=== PATIENT | male | born 1950 | race Caucasian/White ===

== ENCOUNTER → 2017-12-04 08:51 | Outpatient (CLI) | payer MEDICARE, BC, SELFPAY ==
[2017-12-04 10:16] LABS: Alanine Aminotransferase 44 IU/L (21-72); Albumin 4.1 g/dL (3.5-5.0); Albumin Globulin Ratio 1.2 (1.0-2.8); Alkaline Phosphatase 110 U/L (38-126); Aspartate Aminotransferase 36 IU/L (17-59); Bilirubin Total 0.8 mg/dL (0.2-1.3); Blood Urea Nitrogen 16 mg/dL (9-20); Calcium 9.2 mg/dL (8.4-10.2); Carbon Dioxide 30 mmol/L (22-32); Chloride 103 mmol/L (98-107); Cholesterol 167 mg/dL (140-199); Estimated Glomerular Filt Rate > 60.0 mL/min (>60); Globulin 3.5 g/dL (1.7-4.1); Glucose 92 mg/dL (80-110); HDL Cholesterol 52 mg/dL (40-60); HEMOLYSIS < 15 (0-50); LDL Cholesterol Calculated 91 mg/dL (<100); Magnesium 2.1 mg/dL (1.6-2.3); Sodium 141 mmol/L (137-145); Total Protein 7.6 g/dL (6.3-8.2); Triglycerides 119 mg/dL (35-150)
[2017-12-04 10:46] LABS: Thyroid Stimulating Hormone 1.71 uIU/mL (0.47-4.68)
== END ==
PROVIDERS: Family Provider Internal Medicine; PCP Internal Medicine; Visit Provider Internal Medicine Cardiovascular Disease
DX: E78.5 Hyperlipidemia, unspecified (principal); R00.2 Palpitations; R94.31 Abnormal electrocardiogram [ECG] [EKG]
CPT/HCPCS: 36415; 80053; 80061; 83735; 84443

== ENCOUNTER → 2017-12-23 12:04 | Outpatient (CLI) | payer MEDICARE, BC, SELFPAY ==
--- NOTE | 2017-12-25 08:00 | DI.NM.S_ITS ---
DATE OF SERVICE: 12/23/2017 PROCEDURE: Exercise perfusion study. INDICATIONS: Palpitations with underlying right bundle branch block and left anterior fascicular block; however, cannot rule out old inferior wall PR; abnormal EKG; mitral valve prolapse; high cholesterol; and family history of myocardial infarction. RADIOPHARMACEUTICAL: 28.1 mCi of technetium-99m Myoview IV was injected at stress, and 26.8 mCi of technetium-99m Myoview IV was injected at rest. CARDIAC STRESS: Patient underwent exercise perfusion study under the supervision of an attending staff. The patient walked on Gerry protocol for 8 minutes 05 seconds and achieved a maximum heart rate of 208, which was 136% of target heart rate. Baseline rhythm was sinus with right bundle branch block and possible left anterior fascicular block. During stress, there were no obvious ischemic changes. At peak exercise, the patient developed irregular tachycardia like SVT with maximum heart rate of 208. The patient also had intermittent PVCs and occasional ventricular couplets without any ventricular tachycardia. No chest pain was reported. RAW DATA: There was increased subdiaphragmatic activity. GATED STUDY: Resting LV ejection fraction 69% and stress LV ejection fraction 79%. No transient ischemic dilatation. TID ratio 0.72, which is within normal limits. Resting end-diastolic volume 93 mL. Lung/heart ratio 0.30, which is within normal limits. MYOCARDIAL PERFUSION SCAN: Stress supine, resting supine, and stress prone images were compared to each other. Stress and resting supine images revealed small-sized mildly decreased perfusion of inferior wall and inferoapex as well as basal inferolateral wall which significantly improved during prone images, suggestive of diaphragmatic tissue attenuation artifact. I don't see any convincing ischemia or infarction in prone images. CONCLUSION: I would call this study likely a normal myocardial perfusion study with evidence of diaphragmatic tissue attenuation artifact which significantly improved during prone images. Overall, LV function is preserved. As far as perfusion scan is concerned, this is a low risk myocardial perfusion scan. The patient had an episode of regular tachycardia at peak exercise, likely SVT. Shine Heard - HERMELINDO/césar/ doc#: [id number]/job#: [id number] dd: 12/24/2017 12:39:00 dt: 12/24/2017 17:12:00 DICTATING MD/COPIES TO: Tyrone Castellanos MD COPIES MNE: SCOTTY
== END ==
PROVIDERS: PCP Internal Medicine; Visit Provider Internal Medicine Cardiovascular Disease
DX: R00.2 Palpitations (principal); E78.00 Pure hypercholesterolemia, unspecified; Z82.49 Family history of ischemic heart disease and other diseases of the circulatory system
CPT/HCPCS: 78452; 93016; 93017; 93018; A9502

== ENCOUNTER → 2017-12-24 09:36 | Outpatient (CLI) | payer MEDICARE, BC, SELFPAY ==
--- NOTE | 2017-12-24 | DI.ECHO.S_ITS ---
[facility] +---------+ : : [address] : [address] [address] : : : : [id number] : : : : Phone: [phone]+ Echocardiogram Report + + :Name: KADIE MERCEDES Study Date: 12/24/2017 Height: 70 in : :[facility] Weight: 196 lb : : Gender: Male BSA: 2.1 m2 : :: 1950 Age: 67 yrs BP: 138/78 mmHg: :Reason For Study: Palpitations : :Ordering Physician: Tyrone : :[place] Performed By: Miranda Pantoja : :Referring: Dr. Rufino Contreras : + + Interpretation Summary The left ventricle is normal in size. The ejection fraction is estimated to be 55-60%. The right ventricle is normal size. Right ventricular systolic function is at the lower limits of normal. There is mild mitral regurgitation. Compared to the prior echo study, there has been no change in the severity of mitral regurgitation. There is mild tricuspid regurgitation. The right ventricular systolic pressure is estimated at 24 mmHg assuming a right atrial pressure of 3 mm Hg. Procedure: A two-dimensional transthoracic echocardiogram with color flow and Doppler was performed. The study quality was technically adequate. Comparison is made with the echocardiogram of 08-21-13. The patient was in normal sinus rhythm during the exam. Left Ventricle: The left ventricle is normal in size. There is normal left ventricular wall thickness. There is no thrombus. The ejection fraction is estimated to be 55-60%. There has been no significant change since the previous study. There are no focal wall motion abnormalities. Assessment of diastolic parameters indicates a relaxation abnormality of the left ventricle, consistent with normal filling pressures. Right Ventricle: The right ventricle is normal size. Right ventricular systolic function is at the lower limits of normal. Atria: Borderline left atrial enlargement. Right atrial size is normal. The interatrial septum is intact with no evidence for an atrial septal defect. Mitral Valve: The mitral valve leaflets appear mildly thickened, but open well. There is a flat closure plane of the the mitral valve leaflets. There is mild mitral regurgitation. Compared to the prior echo study, there has been no change in the severity of mitral regurgitation. Aortic Valve: The aortic valve opens well. The aortic valve is trileaflet. There is no aortic valve stenosis. No aortic regurgitation is present. Tricuspid Valve: The tricuspid valve leaflets are thin and pliable. There is mild tricuspid regurgitation. The right ventricular systolic pressure is estimated at 24 mmHg assuming a right atrial pressure of 3 mm Hg. Pulmonic Valve: The pulmonic valve is not well seen, but is grossly normal. There is trace pulmonic regurgitation. Great Vessels: The aortic root is normal size. The ascending aorta is mildly enlarged. The IVC is of normal diameter and collapses greater than 50% with a sniff. This suggests a low right atrial pressure of 3 mm Hg. Pericardium/ Pleura There is no pericardial effusion. There is no pleural effusion. MMode/2D Measurements & Calculations LVIDd: 4.7 cm Ao root diam: 3.5 cm LVIDs: 3.0 cm Aortic Jxn: 2.5 cm FS: 36.5 % asc Aorta Diam: 3.6 cm EPSS: 1.2 cm Ao Arch Diam (Prox Trans): 3.0 cm IVSd: 0.84 cm LVPWd: 0.61 cm LV sullivan. diameter/BSA (cm/m^2): 2.3 LV sys. diameter/BSA (cm/m^2): 1.4 LA dimension: 3.1 cm RA long axis: 5.3 cm LA A2 area: 23.8 cm2 RA area: 18.4 cm2 LA A4 area: 20.1 cm2 RA vol: 54.0 ml LA length (vol): 5.3 cm RA : 26.1 ml/m2 LA vol: 76.7 ml IVC diam: 1.1 cm LA vol index: 37.1 ml/m2 RVDd major: 5.1 cm RVD1 (basal): 4.2 cm RVD2 (mid): 3.4 cm Doppler Measurements & Calculations Ao V2 max: 114.8 cm/sec MV E max hector: 76.7 cm/sec Ao V2 mean: 79.3 cm/sec MV A max hector: 80.9 cm/sec Ao max P.3 mmHg MV E/A: 0.95 Ao mean P.8 mmHg Med Peak E' Hector: 5.9 cm/sec Ao V2 VTI: 29.4 cm E/E' med: 13.0 Lat Peak E' Hector: 4.9 cm/sec E/E' lat: 15.5 E/e' average: 14.3 MV dec time: 0.20 sec MV P1/2t: 60.0 msec TR max hector: 229.0 cm/sec MV P1/2t max hector: 77.3 cm/sec TR max P.0 mmHg MVA(P1/2t): 3.7 cm2 PA V2 max: 59.8 cm/sec PA V2 mean: 38.6 cm/sec PA mean P.70 mmHg PA Accel Time: 0.15 sec Reading Physician:SHELLY
== END ==
PROVIDERS: PCP Internal Medicine; Visit Provider Internal Medicine Cardiovascular Disease
DX: I08.1 Rheumatic disorders of both mitral and tricuspid valves (principal); R00.2 Palpitations
CPT/HCPCS: 93306

== ENCOUNTER → 2019-06-17 12:31 | Outpatient (CLI) | payer MEDICARE, SELFPAY ==
[2019-06-17 13:57] LABS: Blood Urea Nitrogen 16 mg/dL (9-20); Calcium 9.4 mg/dL (8.4-10.2); Carbon Dioxide 31 mmol/L (22-32); Chloride 101 mmol/L (98-107); Estimated Glomerular Filt Rate > 60.0 mL/min (>60); Glucose 83 mg/dL (80-110); HEMOLYSIS < 15 (0-50); Magnesium 2.1 mg/dL (1.6-2.3); Potassium 4.2 mmol/L (3.4-5.1); Sodium 138 mmol/L (137-145)
== END ==
PROVIDERS: PCP Internal Medicine; Visit Provider Physician Assistant
DX: I47.1 Supraventricular tachycardia (principal)
CPT/HCPCS: 36415; 80048; 83735; 84443

== ENCOUNTER → 2019-08-20 12:45 | Outpatient (ROUT) | payer MEDICARE, SELFPAY ==
[2019-08-20 13:54] LABS: Prostate Specific Antigen 0.992 ng/mL (0.10-4.00)
[2019-08-20 17:04] LABS: Hep C Virus Ab w/Reflex Quant NEGATIVE s/c (NEGATIVE)
[2019-08-21 00:07] LABS: Hepatitis B Surf AB Quant <3.1 mIU/mL (Immunity>9.9)
== END ==
PROVIDERS: PCP Internal Medicine; Visit Provider Internal Medicine
DX: Z12.5 Encounter for screening for malignant neoplasm of prostate (principal)
CPT/HCPCS: 84153; 86706; 86803

== ENCOUNTER → 2020-08-25 15:30 | Outpatient (ROUT) | payer OTHER, SELFPAY ==
[2020-08-25 15:44] LABS: Add Manual Diff / Slide Review NO; Basophils Absolute Auto 0 /uL (0-100); Basophils Percent Auto 0.6 % (0-2); Eosinophils Absolute Auto 100 /uL (0-450); Eosinophils Percent Auto 1.1 % (2-4); Hematocrit 43.8 % (41-53); Hemoglobin 14.8 g/dL (13.5-17.5); Lymphocytes Absolute Auto 1200 /uL (1100-4500); Mean Corpuscular HGB Conc 33.8 % (30-36); Mean Corpuscular Hemoglobin 33.7 PG (26-34); Mean Corpuscular Volume 99.6 fL (80-100); Monocytes Absolute Auto 500 /uL (0-900); Monocytes Percent Auto 9.7 % (3-14); Neutrophils Absolute Auto 2900 /uL (1500-7000); Neutrophils Percent Auto 62.6 % (50-75); Platelet Count 202 X10^3/uL (150-400); White Blood Cell Count 4.7 X10^3/uL (4.5-11.0)
[2020-08-25 16:05] LABS: Aspartate Aminotransferase 36 IU/L (17-59); BUN Creatinine Ratio 24.7 (6-22); Blood Urea Nitrogen 19 mg/dL (9-20); Calcium 9.7 mg/dL (8.4-10.2); Carbon Dioxide 30 mmol/L (22-32); Chloride 99 mmol/L (98-107); Cholesterol 138 mg/dL (140-199); Estimated Glomerular Filt Rate > 60.0 mL/min (>60); Glucose 92 mg/dL (80-110); HDL Cholesterol 60 mg/dL (40-60); HEMOLYSIS < 15 (0-50); LDL Cholesterol Calculated 63 mg/dL (<100); Magnesium 2.1 mg/dL (1.6-2.3); Potassium 4.8 mmol/L (3.4-5.1); Sodium 136 mmol/L (137-145); Triglycerides 76 mg/dL (35-150)
== END ==
PROVIDERS: PCP Internal Medicine; Visit Provider Internal Medicine
DX: I47.1 Supraventricular tachycardia (principal); E78.2 Mixed hyperlipidemia; N40.0 Benign prostatic hyperplasia without lower urinary tract symptoms; E61.2 Magnesium deficiency
CPT/HCPCS: 80048; 80061; 83735; 84153; 84450; 85025

== ENCOUNTER → 2021-10-05 08:26 | Outpatient (CLI) | payer MEDICARE, SELFPAY ==
[2021-10-05 09:42] LABS: Hematocrit 42.7 % (41-53); Hemoglobin 14.4 g/dL (13.5-17.5); Mean Corpuscular HGB Conc 33.7 % (30-36); Mean Corpuscular Hemoglobin 33.6 PG (26-34); Mean Corpuscular Volume 99.9 fL (80-100); Platelet Count 190 X10^3/uL (150-400); Red Blood Cell Count 4.27 X10^6/uL (4.5-5.9); Red Cell Distribution Width 12.7 % (11.6-14.8); White Blood Cell Count 5.1 X10^3/uL (4.5-11.0)
[2021-10-05 10:01] LABS: Alanine Aminotransferase 37 IU/L (<50); Albumin 4.1 g/dL (3.5-5.0); Albumin Globulin Ratio 1.4 (1.0-2.8); Alkaline Phosphatase 91 U/L (38-126); Aspartate Aminotransferase 40 IU/L (17-59); BUN Creatinine Ratio 20.7 (6-22); Bilirubin Total 1.2 mg/dL (0.2-1.3); Blood Urea Nitrogen 17 mg/dL (9-20); Calcium 9.3 mg/dL (8.4-10.2); Carbon Dioxide 29 mmol/L (22-32); Chloride 105 mmol/L (98-107); Cholesterol 148 mg/dL (140-199); Estimated Glomerular Filt Rate > 60 mL/min (>60); Globulin 2.9 g/dL (1.7-4.1); Glucose 83 mg/dL (80-110); HDL Cholesterol 63 mg/dL (40-60); HEMOLYSIS < 15 (0-50); LDL Cholesterol Calculated 72 mg/dL (<100); Potassium 4.3 mmol/L (3.4-5.1); Sodium 139 mmol/L (137-145); Triglycerides 67 mg/dL (35-150)
[2021-10-05 10:31] LABS: TSH w/ Reflex to FT4 1.62 uIU/mL (0.47-4.68)
[2021-10-05 10:33] LABS: Prostate Specific Antigen 1.35 ng/mL (0.10-4.00)
== END ==
PROVIDERS: PCP Internal Medicine; Referring Provider Internal Medicine; Visit Provider Internal Medicine
DX: E78.2 Mixed hyperlipidemia (principal); N40.0 Benign prostatic hyperplasia without lower urinary tract symptoms; I10 Essential (primary) hypertension; I48.0 Paroxysmal atrial fibrillation
CPT/HCPCS: 36415; 80053; 80061; 84153; 84443; 85027

== ENCOUNTER → 2021-11-13 12:43 | Outpatient (CLI) | payer OTHER, SELFPAY ==
[2021-11-13 15:11] LABS: T4 Total Thyroxine 9.88 ug/dL (5.5-11.0)
== END ==
PROVIDERS: PCP Internal Medicine; Referring Provider Physician Assistant; Visit Provider Physician Assistant
DX: I47.1 Supraventricular tachycardia (principal)
CPT/HCPCS: 36415; 84436; 84443

== ENCOUNTER → 2021-12-27 12:39 | Outpatient (CLI) | payer OTHER, SELFPAY ==
--- NOTE | 2021-12-27 12:40 | DI.ECHO.S_ITS ---
[facility]---------+ [facility] +---------+ : : [address] : [place] [address] : : : : [id number] : : : : Phone: [phone]+ Echocardiogram Report + + :Name: KADIE MERCEDES Study Date: 12/27/2021 Height: 69 in : :[facility] ReadingLocation: Weight: 156 lb : : Gender: Male BSA: 1.9 m2 : :: 1950 Age: 71 yrs BP: 123/84 mmHg: :Reason For Study: SUPRAVENTRICULAR TACHYCARDIA : :Ordering Physician: ELIZABETH, : :LO [place]arte Performed By: Luzma Estrada : :Referring: LO JOHNSON : + + Interpretation Summary The ejection fraction is estimated to be 50-55%. Mild distal septal hypokinesis is noted The mitral regurgitant jet is eccentrically directed. There is mild to moderate mitral regurgitation. Compared to the prior echo study, there has been an increase in the severity of mitral regurgitation. There is trace tricuspid regurgitation. Procedure: A two-dimensional transthoracic echocardiogram with color flow and Doppler was performed. The study quality was technically adequate. Comparison is made with the echocardiogram of 12/24/2017. The patient was in sinus rhythm with heart rates between 53-70 bpm during the exam. The patient had frequent PVCs during the exam. Left Ventricle: The left ventricle is normal in size and wall thickness. The ejection fraction is estimated to be 50-55%. Mild distal septal hypokinesis is noted. Right Ventricle: The right ventricle is normal in size and function. Atria: The left atrium is mildly dilated. The right atrium is mildly dilated. There is no Doppler evidence for an interatrial shunt. Mitral Valve: There is mild mitral valve prolapse. There is mild to moderate mitral regurgitation. The mitral regurgitant jet is eccentrically directed. Compared to the prior echo study, there has been an increase in the severity of mitral regurgitation. Aortic Valve: The aortic valve opens well. The aortic valve is grossly normal. The aortic valve is not well visualized. There is no aortic valve stenosis. No aortic regurgitation is present. Tricuspid Valve: The tricuspid valve is normal in structure and function. There is trace tricuspid regurgitation. Pulmonic Valve: The pulmonic valve leaflets are thin and pliable; valve motion is normal. There is no pulmonic valvular regurgitation. Great Vessels: The aortic root is normal size. The dimensions of the ascending aorta are normal. The IVC is of normal diameter and collapses greater than 50% with a sniff. This suggests a low right atrial pressure of 3 mm Hg. Pericardium/ Pleura There is no pericardial effusion. There is no pleural effusion. MMode/2D Measurements & Calculations LVIDd: 5.5 cm LVOT diam: 2.1 cm LVIDs: 3.5 cm Ao root diam: 3.4 cm FS: 36.5 % asc Aorta Diam: 3.3 cm IVSd: 0.70 cm Ao Arch Diam (Prox Trans): 2.7 cm LVPWd: 0.71 cm LV sullivan. diameter/BSA (cm/m^2): 3.0 LV sys. diameter/BSA (cm/m^2): 1.9 LA A2 area: 21.6 cm2 RA long axis: 4.7 cm LA A4 area: 22.6 cm2 RA area: 18.8 cm2 LA length (vol): 6.2 cm RA vol: 63.2 ml LA vol: 66.8 ml RA : 34.0 ml/m2 LA vol index: 35.9 ml/m2 IVC diam: 1.7 cm RVD1 (basal): 3.7 cm RVD2 (mid): 3.1 cm TAPSE: 2.0 cm Doppler Measurements & Calculations Ao V2 max: 103.6 cm/sec LVOT Max Hector: 89.0 cm/sec Ao V2 mean: 73.7 cm/sec LV V1 max P.2 mmHg Ao max P.3 mmHg LV V1 VTI: 22.6 cm Ao mean P.5 mmHg CATHY(I,D): 2.8 cm2 Ao V2 VTI: 28.3 cm CATHY(V,D): 3.0 cm2 sev ratio: 0.80 CATHY indexed to BSA (cm^2/m^2): 1.5 MV E max hector: 89.2 cm/sec PA V2 max: 67.3 cm/sec MV A max hector: 76.7 cm/sec PA V2 mean: 48.5 cm/sec MV E/A: 1.2 PA mean P.0 mmHg Med Peak E' Hector: 6.7 cm/sec PA pr(Accel): 20.8 mmHg E/E' med: 13.4 Lat Peak E' Hector: 6.4 cm/sec E/E' lat: 13.9 E/e' average: 13.6 MV dec time: 0.21 sec SV(LVOT): 79.9 ml Reading Physician:02:15 PM
== END ==
PROVIDERS: PCP Internal Medicine; Referring Provider Physician Assistant; Visit Provider Physician Assistant
DX: I47.1 Supraventricular tachycardia (principal); I34.1 Nonrheumatic mitral (valve) prolapse; I34.0 Nonrheumatic mitral (valve) insufficiency
CPT/HCPCS: 93306

== ENCOUNTER → 2022-08-27 11:07 | Outpatient (CLI) | payer MEDICARE, SELFPAY ==
[2022-08-27 11:53] LABS: Influenza A - CEPHEID Flu A NEGATIVE (NEGATIVE); Influenza B - CEPHEID Flu B NEGATIVE (NEGATIVE); Respiratory Syncytial Virus Negative (Negative)
[2022-08-27 11:55] LABS: COVID-19 CEPHEID 4-PLEX PCR Negative (Negative)
== END ==
PROVIDERS: PCP Internal Medicine; Visit Provider Student in an Organized Health Care Education/Training Program
DX: R05.1 Acute cough (principal); Z20.822 Contact with and (suspected) exposure to COVID-19
CPT/HCPCS: 0241U

== ENCOUNTER → 2022-10-26 08:50 | Outpatient (CLI) | payer MEDICARE, SELFPAY ==
[2022-10-26 10:31] LABS: Hematocrit 39.8 % (41-53); Hemoglobin 13.6 g/dL (13.5-17.5); Mean Corpuscular HGB Conc 34.1 % (30-36); Mean Corpuscular Hemoglobin 33.9 PG (26-34); Mean Corpuscular Volume 99.4 fL (80-100); Platelet Count 217 X10^3/uL (150-400); Red Blood Cell Count 4.01 X10^6/uL (4.5-5.9); Red Cell Distribution Width 13.2 % (11.6-14.8); White Blood Cell Count 4.3 X10^3/uL (4.5-11.0)
[2022-10-26 10:37] LABS: Alanine Aminotransferase 44 IU/L (<50); Albumin 3.8 g/dL (3.5-5.0); Albumin Globulin Ratio 1.3 (1.0-2.8); Alkaline Phosphatase 98 U/L (38-126); Aspartate Aminotransferase 39 IU/L (17-59); BUN Creatinine Ratio 23.4 (6-22); Bilirubin Total 0.9 mg/dL (0.2-1.3); Blood Urea Nitrogen 18 mg/dL (9-20); Calcium 8.7 mg/dL (8.4-10.2); Carbon Dioxide 32 mmol/L (22-32); Chloride 99 mmol/L (98-107); Cholesterol 147 mg/dL (140-199); Estimated Glomerular Filt Rate > 60 mL/min (>60); Glucose 80 mg/dL (80-110); HDL Cholesterol 55 mg/dL (40-60); HEMOLYSIS < 15 (0-50); LDL Cholesterol Calculated 78 mg/dL (<100); Potassium 4.1 mmol/L (3.4-5.1); Sodium 136 mmol/L (137-145); Total Protein 6.8 g/dL (6.3-8.2); Triglycerides 71 mg/dL (35-150)
[2022-10-26 11:05] LABS: Prostate Specific Antigen 1.65 ng/mL (0.10-4.00)
[2022-10-26 11:13] LABS: TSH w/ Reflex to FT4 2.18 uIU/mL (0.47-4.68)
== END ==
PROVIDERS: PCP Internal Medicine; Referring Provider Internal Medicine; Visit Provider Internal Medicine
DX: E78.2 Mixed hyperlipidemia (principal); N40.0 Benign prostatic hyperplasia without lower urinary tract symptoms; I10 Essential (primary) hypertension; I47.1 Supraventricular tachycardia
CPT/HCPCS: 36415; 80053; 80061; 84153; 84443; 85027

== ENCOUNTER → 2022-12-14 09:16 | Outpatient (CLI) | payer MEDICARE, SELFPAY ==
--- NOTE | 2022-12-14 09:18 | DI.CT.S_ITS ---
PROCEDURE: CT CHEST WO CON INDICATIONS: pulmonary nodules, compare with PET scan 07/18/2022 TECHNIQUE: Noncontrast 5 mm thick sections acquired from the pulmonary apices to the posterior costophrenic angles. 1 mm lung window, 5 mm thick coronal and sagittal and 7 mm axial MIP reformats were then acquired. For radiation dose reduction, the following was used: automated exposure control, adjustment of mA and/or kV according to patient size. COMPARISON: Outside Facility, RG, CT PET SKULL BASE TO MID THIGH, 07/18/2022, 11:11. FINDINGS: Image quality: Excellent. Lungs and pleura: There is a stable 6 mm pulmonary nodule at the right apex when compared with the prior CT dated July 18, 2022 (series 3/image 55).. 7 mm pulmonary nodule at the left lung base is unchanged from the prior study (series 3/image 217). No new pulmonary nodules. No acute airspace opacities. No pleural effusion or pneumothorax. Mediastinum: Heart size is normal. No pericardial effusion. No mediastinal adenopathy by size criteria. Thoracic aorta and central pulmonary arteries are normal in size. Scattered atheromatous calcifications are present within the aortic arch. Esophagus is normal in caliber. No hiatal hernia. Bones and chest wall: No suspicious bony lesions. No vertebral body compression fractures. No axillary or supraclavicular adenopathy by size criteria. Thyroid gland is unremarkable . Abdomen: There are likely multiple calcified stones in the gallbladder fundus which is incompletely characterized on this limited view. Visualized upper abdominal solid organs and bowel loops appear otherwise normal in the absence of contrast. IMPRESSION: 1. Stable pulmonary nodules when compared with the prior study dated July 18, 2022. [address] follow-up recommended. Please see guidelines below. Fleischner Society criteria for SOLID lung nodule followup. Nodule size (mm)Low-risk patientHigh-risk patient<6 (single or multiple)No routine followup.Optional CT at 12 months. 6-8 (single or multiple)CT at 6-12 months, then optional CT at 18-24 mo.CT at 6-12 months, then CT at 18-24 months. >8 (single)CT at 3 months, PET-CT, or biopsy. Same as for low-risk pts. >8 (multiple)CT at 3-6 months, then optional CT at 18-24 mo.CT at 3-6 months, then CT at 18-24 months. Fleischner Society criteria for SUB-SOLID lung nodule followup. Solitary pure ground-glass nodules<6 mm (ground glass or part solid)No followup needed. 6 mm or larger (ground glass)CT at 6-12 months to confirm persistence, then CT every 2 years until 5 years.6 mm or larger (part solid)CT at 3-6 months to confirm persistence, then annual CT until 5 years if unchanged and solid component remains <6 mm. Multiple sub-solid nodules<6 mmCT at 3-6 months, then CT consider at 2 & 4 years for high risk patients. [address] at 3-6 months. Subsequent management based on most suspicious lesions. Recommendations do not apply to lung cancer screening, patients with immunosuppression, or patients with known primary cancer. Dictated by: Loraine Snyder M.D. on 12/14/2022 at 13:58 Approved by: Loraine Snyder M.D. on 12/14/2022 at 14:15
== END ==
PROVIDERS: PCP Internal Medicine; Referring Provider Internal Medicine; Visit Provider Internal Medicine
DX: R91.8 Other nonspecific abnormal finding of lung field (principal)
CPT/HCPCS: 71250

== ENCOUNTER → 2023-01-25 11:37 | Outpatient (CLI) | payer MEDICARE, SELFPAY ==
[2023-01-25 13:11] LABS: Add Manual Diff / Slide Review NO; Basophils Absolute Auto 0 /uL (0-100); Basophils Percent Auto 0.4 % (0-2); Eosinophils Absolute Auto 200 /uL (0-450); Eosinophils Percent Auto 4.7 % (2-4); Hematocrit 39.8 % (41-53); Hemoglobin 13.6 g/dL (13.5-17.5); Lymphocytes Absolute Auto 1000 /uL (1100-4500); Lymphocytes Percent Auto 23.3 % (25-40); Mean Corpuscular HGB Conc 34.3 % (30-36); Mean Corpuscular Volume 99.3 fL (80-100); Monocytes Absolute Auto 600 /uL (0-900); Monocytes Percent Auto 13.9 % (3-14); Neutrophils Absolute Auto 2500 /uL (1500-7000); Neutrophils Percent Auto 57.7 % (50-75); Platelet Count 158 X10^3/uL (150-400); Red Blood Cell Count 4.01 X10^6/uL (4.5-5.9); Red Cell Distribution Width 12.8 % (11.6-14.8); White Blood Cell Count 4.3 X10^3/uL (4.5-11.0)
[2023-01-25 13:34] LABS: BUN Creatinine Ratio 20.6 (6-22); Blood Urea Nitrogen 14 mg/dL (9-20); Calcium 9.2 mg/dL (8.4-10.2); Carbon Dioxide 29 mmol/L (22-32); Chloride 102 mmol/L (98-107); Estimated Glomerular Filt Rate > 60 mL/min (>60); Glucose 85 mg/dL (80-110); HEMOLYSIS < 15 (0-50); Potassium 4.4 mmol/L (3.4-5.1); Sodium 137 mmol/L (137-145)
== END ==
PROVIDERS: PCP Internal Medicine; Referring Provider Physician Assistant; Visit Provider Physician Assistant
DX: I49.5 Sick sinus syndrome (principal)
CPT/HCPCS: 36415; 80048; 85025

== ENCOUNTER → 2023-10-28 10:37 | Outpatient (CLI) | payer MEDICARE, SELFPAY ==
[2023-10-28 12:49] LABS: Hemoglobin 13.4 g/dL (13.5-17.5); Mean Corpuscular HGB Conc 33.6 % (30-36); Mean Corpuscular Hemoglobin 33.6 PG (26-34); Mean Corpuscular Volume 99.9 fL (80-100); Platelet Count 200 X10^3/uL (150-400); Red Cell Distribution Width 13.3 % (11.6-14.8)
[2023-10-28 13:22] LABS: Alanine Aminotransferase 28 IU/L (<50); Albumin 4.1 g/dL (3.5-5.0); Albumin Globulin Ratio 1.4 (1.0-2.8); Alkaline Phosphatase 91 U/L (38-126); Aspartate Aminotransferase 52 IU/L (17-59); BUN Creatinine Ratio 18.9 (6-22); Bilirubin Total 1.6 mg/dL (0.2-1.3); Blood Urea Nitrogen 14 mg/dL (9-20); Calcium 8.9 mg/dL (8.4-10.2); Carbon Dioxide 28 mmol/L (22-32); Chloride 104 mmol/L (98-107); Cholesterol 131 mg/dL (140-199); Estimated Glomerular Filt Rate > 60 mL/min (>60); Globulin 2.9 g/dL (1.7-4.1); Glucose 75 mg/dL (80-110); HDL Cholesterol 57 mg/dL (40-60); HEMOLYSIS 18 (0-50); LDL Cholesterol Calculated 64 mg/dL (<100); Potassium 4.1 mmol/L (3.4-5.1); Sodium 137 mmol/L (137-145); Triglycerides 51 mg/dL (35-150)
[2023-10-28 13:44] LABS: Prostate Specific Antigen 1.51 ng/mL (0.10-4.00)
== END ==
LOC: LAB 10:38
PROVIDERS: PCP Internal Medicine; Referring Provider Internal Medicine; Visit Provider Internal Medicine
DX: E78.2 Mixed hyperlipidemia (principal); N40.1 Benign prostatic hyperplasia with lower urinary tract symptoms; I49.5 Sick sinus syndrome; N13.8 Other obstructive and reflux uropathy
CPT/HCPCS: 36415; 80053; 80061; 84153; 85027

== ENCOUNTER → 2023-11-11 13:44 | Outpatient (CLI) | payer MEDICARE, SELFPAY ==
--- NOTE | 2023-11-11 13:45 | DI.CT.S_ITS ---
PROCEDURE: CT CHEST WO CON INDICATIONS: lung nodules TECHNIQUE: Noncontrast 2.0-2.5 mm thick sections acquired from the pulmonary apices to the posterior costophrenic angles. 7 mm thick axial MIP and 5 mm coronal and sagittal reformats were then acquired. For radiation dose reduction, the following was used: automated exposure control, adjustment of mA and/or kV according to patient size. COMPARISON: [facility], CT, CT CHEST WO CON, 12/14/2022, 9:25. FINDINGS: Image quality: Diagnostic. Lower Neck: No enlarged lymph nodes. Thyroid: No thyroid nodules which require sonographic follow up, per consensus guidelines. Axillae: No enlarged lymph nodes. Chest Wall: Unremarkable. Bones: Unremarkable. Lungs and Pleura: No pneumothorax or pleural effusions. 6 mm pulmonary nodules at the right apex and within the lingula are unchanged when compared with the CT dated December 14, 2022. There is also a stable 5 mm pulmonary nodule within the right middle lobe (series 3/image 164). No new pulmonary nodules which require follow-up Heart: Heart size is normal. No pericardial effusion. Thoracic Vessels: The aorta and pulmonary arteries demonstrate normal size. Scattered atheromatous calcifications are present within the aortic arch. Mediastinum and Leni: No enlarged lymph nodes. Esophagus: No wall thickening. No hiatal hernia. Upper Abdomen: There are likely calcified stones in the gallbladder fundus which is incompletely characterized. A low-density cyst is partially visualized in the upper pole of the left kidney. Visualized upper abdomen solid organs and bowel loops appear otherwise normal. IMPRESSION: Stable pulmonary nodules. No new nodules or suspicious lesions which require follow-up. Please see follow-up guidelines below. An optional CT at 12 months could be used to demonstrate stability if clinically indicated. Fleischner Society criteria for SOLID lung nodule followup. Nodule size (mm)Low-risk patientHigh-risk patient<6 (single or multiple)No routine followup.Optional CT at 12 months. 6-8 (single or multiple)CT at 6-12 months, then optional CT at 18-24 mo.CT at 6-12 months, then CT at 18-24 months. >8 (single)CT at 3 months, PET-CT, or biopsy. Same as for low-risk pts. >8 (multiple)CT at 3-6 months, then optional CT at 18-24 mo.CT at 3-6 months, then CT at 18-24 months. Fleischner Society criteria for SUB-SOLID lung nodule followup. Solitary pure ground-glass nodules<6 mm (ground glass or part solid)No followup needed. 6 mm or larger (ground glass)CT at 6-12 months to confirm persistence, then CT every 2 years until 5 years.6 mm or larger (part solid)CT at 3-6 months to confirm persistence, then annual CT until 5 years if unchanged and solid component remains <6 mm. Multiple sub-solid nodules<6 mmCT at 3-6 months, then CT consider at 2 & 4 years for high risk patients. [address] at 3-6 months. Subsequent management based on most suspicious lesions. Recommendations do not apply to lung cancer screening, patients with immunosuppression, or patients with known primary cancer. Dictated by: Loraine Snyder M.D. on 11/11/2023 at 15:12 Approved by: Loraine Snyder M.D. on 11/11/2023 at 15:19
== END ==
PROVIDERS: PCP Internal Medicine; Referring Provider Internal Medicine; Visit Provider Internal Medicine
DX: R91.8 Other nonspecific abnormal finding of lung field (principal)
CPT/HCPCS: 71250

== ENCOUNTER → 2024-02-05 13:37 | Outpatient (CLI) | payer MEDICARE, SELFPAY ==
[2024-02-05 15:20] LABS: Alanine Aminotransferase 27 IU/L (<50); Albumin Globulin Ratio 1.5 (1.0-2.8); Alkaline Phosphatase 82 U/L (38-126); Aspartate Aminotransferase 33 IU/L (17-59); BUN Creatinine Ratio 22.6 (6-22); Bilirubin Total 1.2 mg/dL (0.2-1.3); Blood Urea Nitrogen 19 mg/dL (9-20); Calcium 9.2 mg/dL (8.4-10.2); Carbon Dioxide 27 mmol/L (22-32); Chloride 102 mmol/L (98-107); Estimated Glomerular Filt Rate > 60 mL/min (>60); Globulin 2.7 g/dL (1.7-4.1); Glucose 97 mg/dL (80-110); HEMOLYSIS < 15 (0-50); Potassium 4.4 mmol/L (3.4-5.1); Sodium 136 mmol/L (137-145); Total Protein 6.7 g/dL (6.3-8.2)
== END ==
LOC: LAB 13:37
PROVIDERS: PCP Internal Medicine; Referring Provider Physician Assistant; Visit Provider Physician Assistant
DX: I49.5 Sick sinus syndrome (principal)
CPT/HCPCS: 36415; 80053

== ENCOUNTER 2024-05-25 17:04 | Emergency (ER) | payer MEDICARE, SELFPAY ==
[2024-05-25] VITALS (7 sets, daily range): BP systolic 125–168; BP diastolic 70–102; PULSE 69–134; RESP 18; TEMP 36.7; O2SAT 96–100; BMI 23.8
[2024-05-25 20:48] LABS: Urine Volume 10mL (spun)
[2024-05-25 20:49] LABS: Amorphous Sediment Urine 1+; Bacteria Urine Occasional (0-1); Mucus Urine 1+ (Negative); RBC Urine 0-1/HPF (0-5/HPF); Renal Epithelial Cells Urine 0-1/HPF (0-1/HPF); Squamous Epithelial Cell Urine None Seen (0-5/HPF); WBC Urine 0-1/HPF (0-5/HPF)
[2024-05-25 20:50] LABS: Culture Indicated Urine Cult Not Indicated
--- NOTE | 2024-05-25 21:06 | ED.GENADULT ---
HPI - General Adult General Chief complaint: Urogenital-Male Stated complaint: unable to urinate and bm Time Seen by Provider: 05/25/24 20:44 Source: patient Mode of arrival: Ambulatory Limitations: no limitations History of Present Illness HPI narrative: Patient is a 74-year-old male here for evaluation of inability to urinate and also concern for constipation. His last normal urination was approximately 0900 hours this morning. He was never had issues with urinating in the past. Has never needed a Quintero catheter in the past. No fevers. No history of urinary tract infections. States his last normal bowel movement was 3 days ago. Has had some hard stool since then but he states he has an urgent need to go have a bowel movement but has been unable to do so. Has tried suppositories at home and stool softeners without improvement of symptoms. Related Data Home Medications Medication Instructions Recorded Confirmed aspirin 81 mg tablet,delayed 81 mg PO DAILY 09/26/18 05/21/24 release glucosamine-chondroitin 1 tab PO BID 09/29/21 05/21/24 magnesium 250 mg tablet 250 mg PO DAILY 09/29/21 05/21/24 flecainide 50 mg tablet 50 mg PO BID SVT 02/06/23 05/21/24 metoprolol succinate 25 mg 25 mg PO DAILY SVT 02/06/23 05/21/24 tablet,extended release 24 hr ResMed Airsense 11 10/28/23 05/21/24 omega 3-zmk-fpp-fish oil 1,200 mg 1 cap PO DAILY Dry eyes 10/28/23 05/21/24 (144 mg-216 mg) capsule (Fish Oil) Previous Rx's Medication Instructions Recorded atorvastatin 40 mg tablet 40 mg PO DAILY #90 tabs 02/26/24 Allergies Allergy/AdvReac Type Severity Reaction Status Date / Time Penicillins Allergy Severe Anaphylaxis Verified 05/21/24 08:43 Review of Systems Review of Systems ROS Unobtainable: All systems reviewed & are unremarkable except as noted in HPI and below Patient History Medical History Dupuytren contracture of right hand Osteoarthritis of right thumb SSS (sick sinus syndrome) Derangement of left sacroiliac joint History of colonic polyps Frequent PVCs Paroxysmal atrial tachycardia Pulmonary nodules Mixed hyperlipidemia Essential hypertension Anxiety and depression (~1979) Mumps Chicken pox Tinnitus (~2009) Colon polyps (~2014) Obstructive sleep apnea syndrome (~2016) Primary insomnia Cardiac dysrhythmia, unspecified (~2016) Surgical History Status post cardiac pacemaker procedure Anesthesia History of colonoscopy (~05/2021) History of eye surgery (~2014) History of eye surgery (~2016) History of cardiac radiofrequency ablation (~02/01/21) Family History Father History of heart disease Mother Cancer Sister Cancer Social History marital status: details: Enjoys theater household members: spouse lives independently: Yes caregiver/support person: No occupational status: previously employed Smoking Status: Never smoker alcohol intake: current substance use type: does not use Smoking Status: Never smoker Exam Initial Vital Signs Initial Vital Signs: Vital Signs Temperature 98.1 F 05/25/24 17:17 Pulse Rate 69 05/25/24 17:17 Respiratory Rate 18 05/25/24 17:17 Blood Pressure 139/70 05/25/24 17:17 Pulse Oximetry 100 05/25/24 17:17 Oxygen Delivery Method Room Air 05/25/24 17:17 Const General: cooperative, comfortable and No ill appearing HENMT Head: normal to inspection Resp Effort & Inspection: normal respiratory effort Auscultation: clear to auscultation bilaterally Cardio Rate: regular rate Rhythm: regular rhythm GI Inspection: normal to inspection and non-distended Palpation: soft and No tender External: normal external exam Other: Left testicle normal in scrotum. Right testicle is retracted but is able to be pushed into the scrotum. Skin General: no rashes or lesions noted Neuro General: patient alert, patient awake and moves all extremities Extrem General: capillary refill normal Course Orders Ordered: ED Orders 05/25/24 20:01 Urine Microscopic Stat 05/25/24 22:37 CT abdomen pelvis w con Stat 05/25/24 22:50 Complete Blood Count AUTO DIFF Stat Comprehensive Metabolic Panel Stat Lipase Stat Discontinued Medications Lidocaine HCl (Lidocaine 2% (Glydo) 6 Ml Gel) 6 ml TOP NOW ONE Stop: 05/25/24 18:16 Last Admin: 05/25/24 21:41 Dose: 6 ml Documented By: HEIDI Sodium Biphosphate/Sodium Phosphate (Fleets Enema) 1 each MD NOW ONE Stop: 05/26/24 00:12 Last Admin: 05/26/24 00:15 Dose: 1 each Documented By: HEIDI Vital Signs Vital signs: Vital Signs - 8 hr 05/25/24 19:57 05/25/24 21:11 05/25/24 22:34 Pulse Rate 134 H 127 H 122 H Respiratory Rate 18 Blood Pressure 168/102 H 133/83 127/83 Pulse Oximetry 99 96 98 Oxygen Delivery Method Room Air Room Air 05/25/24 22:35 05/25/24 22:35 05/25/24 22:40 Pulse Rate 125 H Respiratory Rate Blood Pressure 125/79 138/87 Pulse Oximetry 98 Oxygen Delivery Method 05/25/24 22:40 05/25/24 23:13 05/26/24 01:24 Pulse Rate 127 H 125 H Respiratory Rate Blood Pressure 123/84 Pulse Oximetry 98 97 Oxygen Delivery Method 05/26/24 01:24 05/26/24 01:31 05/26/24 01:46 Pulse Rate 138 H Respiratory Rate Blood Pressure Pulse Oximetry 97 97 Oxygen Delivery Method Medical Decision Making Lab Data Lab results reviewed: Yes I reviewed the patient's lab results. 05/25/24 22:50 05/25/24 22:50 Labs: Lab Results 05/25/24 05/25/24 Range/Units 20:01 22:50 WBC 9.5 (4.5-11.0) X10^3/uL RBC 4.14 L (4.5-5.9) X10^6/uL Hgb 13.9 (13.5-17.5) g/dL Hct 41.4 (41-53) % MCV 100.0 (80-100) fL MCH 33.5 (26-34) PG MCHC 33.5 (30-36) % RDW 12.7 (11.6-14.8) % Plt Count 225 (150-400) X10^3/uL Neut % (Auto) 88.9 H (50-75) % Lymph % (Auto) 7.0 L (25-40) % Jenkins % (Auto) 4.0 (3-14) % Eos % (Auto) 0.0 L (2-4) % Baso % (Auto) 0.1 (0-2) % Neut # (Auto) 8500 H (9789-9765) /uL Lymph # (Auto) 700 L (0081-2759) /uL Jenkins # (Auto) 400 (0-900) /uL Eos # (Auto) 0 (0-450) /uL Baso # (Auto) 0 (0-100) /uL Sodium 134 L (137-145) mmol/L Potassium 4.2 (3.4-5.1) mmol/L Chloride 102 (98-107) mmol/L Carbon Dioxide 26 (22-32) mmol/L BUN 17 (9-20) mg/dL Creatinine 0.74 (0.66-1.25) mg/dL Estimated GFR > 60 (>60) mL/min BUN/Creatinine Ratio 23.0 H (6-22) Glucose 121 H (80-110) mg/dL Calcium 9.1 (8.4-10.2) mg/dL Total Bilirubin 1.3 (0.2-1.3) mg/dL AST 41 (17-59) IU/L ALT 35 (<50) IU/L Alkaline Phosphatase 86 (38-126) U/L Total Protein 7.1 (6.3-8.2) g/dL Albumin 4.1 (3.5-5.0) g/dL Globulin 3.0 (1.7-4.1) g/dL Albumin/Globulin Ratio 1.4 (1.0-2.8) Lipase 82 (23-300) U/L Urine RBC 0-1/hpf (0-5/HPF) Urine WBC 0-1/hpf (0-5/HPF) Ur Squamous Epith Cells None seen (0-5/HPF) Ur Renal Epithelial Cell 0-1/hpf (0-1/HPF) Amorphous Sediment 1+ Urine Bacteria Occasional (0-1) (None) Urine Mucus 1+ H (Negative) Ur Culture Indicated? Cult not indicated Vol Urine Centrifuged 10ml (spun) Urine Dip Bedside Urine Glucose Negative Bedside Urine Bilirubin - Negative Bedside Urine Ketone ++ 40 Urine Specific [place] 1.010 Bedside Urine Occult Blood - Negative Bedside Urine pH 6.0 Bedside Urine Protein - Negative Bedside Urine Urobilinogen - Negative Bedside Urine Nitrite - Negative Bedside Urine Leukocytes - Negative Esterase Point of care testing: Urine Dip Bedside Urine Glucose Negative Bedside Urine Bilirubin - Negative Bedside Urine Ketone ++ 40 Urine Specific [place] 1.010 Bedside Urine Occult Blood - Negative Bedside Urine pH 6.0 Bedside Urine Protein - Negative Bedside Urine Urobilinogen - Negative Bedside Urine Nitrite - Negative Bedside Urine Leukocytes - Negative Esterase Imaging Data CT scan - abdomen/pelvis: Radiologist's Impression: PROCEDURE: CT ABDOMEN PELVIS W CON INDICATIONS: Constipation versus obstruction TECHNIQUE: After the administration of intravenous contrast, axial sections acquired from the lung bases to the pubic symphysis. Coronal and sagittal reformats were performed. For radiation dose reduction, the following was used: automated exposure control, adjustment of mA and/or kV according to patient size. COMPARISON: None. FINDINGS: Image quality: Diagnostic. Lower Chest: No significant findings. ABDOMEN: Liver: No solid mass. Gallbladder: Cholelithiasis. Gallbladder is contracted. Biliary ducts: No biliary dilation. Pancreas: No ductal dilation. Spleen: Size is within normal limits. Adrenal Glands: No adrenal nodules. Kidneys and Ureters: No hydronephrosis. No solid mass. No complex renal cystic lesion which requires follow up. Stomach and Bowel: Large colonic and rectal stool load. No abnormal rectal wall thickening or colonic wall thickening to suggest stercoral colitis or proctitis. No significant distension of the small bowel. Normal appendix. Peritoneum: No abnormal intraperitoneal fluid. No free air. Ventral Wall: No significant ventral hernia. Abdominal Nodes: No retroperitoneal or mesenteric adenopathy by size criteria. Vessels: Aorta and inferior vena cava are normal in size. PELVIS: Pelvic Organs: Undescended right testicle. Bladder: Decompressed around a Quintero catheter. Pelvic Nodes: No enlarged lymph nodes. Miscellaneous: No inguinal hernias are seen. Bones: No aggressive osseous abnormality. IMPRESSION: Massive colonic and rectal stool load. No abnormal rectal wall thickening or colonic wall thickening to suggest stercoral colitis or proctitis. No significant small bowel distension to suggest obstipation at this time. Undescended right testicle, which may warrant outpatient urology referral. Cholelithiasis without evidence of acute cholecystitis. MDM Narrative Medical decision making narrative: Initial bladder scan shows approximately 400 cc of urine in the bladder. Given the possibility that his constipation issues could be related to urinary retention a Quintero catheter was placed. We did proximally 400 cc of urine resolved. Patient was still having quite a bit of discomfort in his rectum. Labs were ordered which were subsequently unremarkable. CT scan shows large stool burden which does correspond to he was concern for constipation. No other acute surgical pathology noted. Attempted enema here in the emergency department however patient was only had small bowel movements and would like to be discharged home where he can do another enema at home and even oral laxatives. That was the incidental finding of the undescended testicle in the right. Patient states he was never been told this in the past. Upon evaluation his testicle is retracted into the inguinal canal however it is able to be pushed back into the scrotum. He was no tenderness in his area. He was advised that he does need to follow-up with Urology regarding this. [place] that his symptoms today are most likely related to constipation unless like related to an acute urinary retention. His Quintero catheter was removed prior to discharge. Patient was given return precautions and follow-up instructions. He expressed understanding and agreement plan. Patient does have history of tachycardia. He was on metoprolol once a day and flecainide twice a day. He was taken all of his medications. He was not having palpitations. No shortness of breath. No chest pain. His heart rate has been in the 130s 140s. He does have a pacemaker but the patient states that it only operates when his heart rate gets low. I did recommend the that when he returned home he take an extra dose of his metoprolol. I also advised that for the next several evening see takes his heart rate at home as he was asymptomatic today and he potentially maybe having more issues with tachycardia then what he realizes. Recommended that he contact his primary doctor for follow-up and also his supervisor winter. He expressed understanding and agreement with plan. Discharge Plan Departure Patient Disposition: Home Clinical Impression: Constipation, Tachycardia, Undescended right testicle Instructions: DI for Constipation Activity Restrictions/Additional Instructions: I do recommend that you take an extra dose of your metoprolol this evening when you go home. I did recommend that over the next couple days in the evening you check your heart rate to make sure that you were not persistently tachycardic. I do recommend that you take a laxative at home. An example this would be MiraLax. You can also try a Fleet's enema. We also had the incidental finding of the undescended testicle. This needs to be followed up by Urology. Return to the emergency department for new or worsening symptoms. Prescriptions: No Action atorvastatin 40 mg tablet 40 mg PO DAILY Qty: 90 3RF omega 9-isg-upv-fish oil [Fish Oil] 1,200 (144-216) mg capsule 1 cap PO DAILY (DME) ResMed Airsense 11 See Rx Instructions .Route .MEDSUPPLY Rx Instructions: Patient Reason: Sleep apnea Prescriber: Benito Rojo MD magnesium 250 mg tablet 250 mg PO DAILY glucosamine-chondroitin 1,250 mg tablet 1 tab PO BID metoprolol succinate 25 mg tablet extended release 24 hr 25 mg PO DAILY flecainide 50 mg tablet 50 mg PO BID aspirin 81 mg tablet,delayed release (DR/EC) 81 mg PO DAILY Referrals: Tevin Chavarria DO [Physician] - Sanju Vergara MD [Primary Care Provider] - Stand Alone Forms: Patient Portal/API/Survey
[2024-05-25] MEDS: LIDOCAINE 2% (GLYDO) 6 ML GEL TOP (21:41)
--- NOTE | 2024-05-25 22:37 | DI.CT.S_ITS ---
PROCEDURE: CT ABDOMEN PELVIS W CON INDICATIONS: Constipation versus obstruction TECHNIQUE: After the administration of intravenous contrast, axial sections acquired from the lung bases to the pubic symphysis. Coronal and sagittal reformats were performed. For radiation dose reduction, the following was used: automated exposure control, adjustment of mA and/or kV according to patient size. COMPARISON: None. FINDINGS: Image quality: Diagnostic. Lower Chest: No significant findings. ABDOMEN: Liver: No solid mass. Gallbladder: Cholelithiasis. Gallbladder is contracted. Biliary ducts: No biliary dilation. Pancreas: No ductal dilation. Spleen: Size is within normal limits. Adrenal Glands: No adrenal nodules. Kidneys and Ureters: No hydronephrosis. No solid mass. No complex renal cystic lesion which requires follow up. Stomach and Bowel: Large colonic and rectal stool load. No abnormal rectal wall thickening or colonic wall thickening to suggest stercoral colitis or proctitis. No significant distension of the small bowel. Normal appendix. Peritoneum: No abnormal intraperitoneal fluid. No free air. Ventral Wall: No significant ventral hernia. Abdominal Nodes: No retroperitoneal or mesenteric adenopathy by size criteria. Vessels: Aorta and inferior vena cava are normal in size. PELVIS: Pelvic Organs: Undescended right testicle. Bladder: Decompressed around a Quintero catheter. Pelvic Nodes: No enlarged lymph nodes. Miscellaneous: No inguinal hernias are seen. Bones: No aggressive osseous abnormality. IMPRESSION: Massive colonic and rectal stool load. No abnormal rectal wall thickening or colonic wall thickening to suggest stercoral colitis or proctitis. No significant small bowel distension to suggest obstipation at this time. Undescended right testicle, which may warrant outpatient urology referral. Cholelithiasis without evidence of acute cholecystitis. Dictated by: Jaxon Payton M.D. on 05/25/2024 at 23:55 Approved by: Jaxon Payton M.D. on 05/25/2024 at 23:58
[2024-05-25 23:03] LABS: Add Manual Diff / Slide Review NO; Basophils Absolute Auto 0 /uL (0-100); Basophils Percent Auto 0.1 % (0-2); Eosinophils Absolute Auto 0 /uL (0-450); Hematocrit 41.4 % (41-53); Hemoglobin 13.9 g/dL (13.5-17.5); Lymphocytes Absolute Auto 700 /uL (1100-4500); Mean Corpuscular HGB Conc 33.5 % (30-36); Mean Corpuscular Hemoglobin 33.5 PG (26-34); Monocytes Absolute Auto 400 /uL (0-900); Neutrophils Absolute Auto 8500 /uL (1500-7000); Neutrophils Percent Auto 88.9 % (50-75); Platelet Count 225 X10^3/uL (150-400); Red Blood Cell Count 4.14 X10^6/uL (4.5-5.9); Red Cell Distribution Width 12.7 % (11.6-14.8); White Blood Cell Count 9.5 X10^3/uL (4.5-11.0)
[2024-05-25 23:15] LABS: Alanine Aminotransferase 35 IU/L (<50); Albumin 4.1 g/dL (3.5-5.0); Albumin Globulin Ratio 1.4 (1.0-2.8); Alkaline Phosphatase 86 U/L (38-126); Aspartate Aminotransferase 41 IU/L (17-59); Bilirubin Total 1.3 mg/dL (0.2-1.3); Blood Urea Nitrogen 17 mg/dL (9-20); Calcium 9.1 mg/dL (8.4-10.2); Carbon Dioxide 26 mmol/L (22-32); Chloride 102 mmol/L (98-107); Estimated Glomerular Filt Rate > 60 mL/min (>60); Glucose 121 mg/dL (80-110); HEMOLYSIS < 15 (0-50); Lipase 82 U/L (23-300); Potassium 4.2 mmol/L (3.4-5.1); Sodium 134 mmol/L (137-145); Total Protein 7.1 g/dL (6.3-8.2)
[2024-05-26] MEDS: FLEETS ENEMA 1 EACH PR (00:15)
[2024-05-26 01:24] VITALS: BP 123/84; O2SAT 97
[2024-05-26 01:31] VITALS: O2SAT 97
[2024-05-26 01:46] VITALS: PULSE 138
== END 2024-05-26 01:49 | disposition home or self-care (01) ==
PROVIDERS: Emergency Provider Emergency Medicine; PCP Internal Medicine
DX: K59.00 Constipation, unspecified (principal); R00.0 Tachycardia, unspecified; Q53.10 Unspecified undescended testicle, unilateral
CPT/HCPCS: 36415; 51798; 74177; 80053; 81003; 81015; 83690; 85025; 99284; Q9967

== ENCOUNTER → 2024-10-28 15:18 | Outpatient (CLI) | payer MEDICARE, SELFPAY ==
[2024-10-28 15:56] LABS: Mean Corpuscular HGB Conc 33.4 % (30-36); Mean Corpuscular Hemoglobin 33.6 PG (26-34); Mean Corpuscular Volume 100.7 fL (80-100); Platelet Count 200 X10^3/uL (150-400); Red Blood Cell Count 4.18 X10^6/uL (4.5-5.9); Red Cell Distribution Width 13.3 % (11.6-14.8); White Blood Cell Count 3.9 X10^3/uL (4.5-11.0)
[2024-10-28 16:17] LABS: Alanine Aminotransferase 29 IU/L (<50); Albumin 4.2 g/dL (3.5-5.0); Albumin Globulin Ratio 1.5 (1.0-2.8); Alkaline Phosphatase 71 U/L (38-126); Aspartate Aminotransferase 37 IU/L (17-59); BUN Creatinine Ratio 21.2 (6-22); Bilirubin Total 1.1 mg/dL (0.2-1.3); Blood Urea Nitrogen 18 mg/dL (9-20); Calcium 9.4 mg/dL (8.4-10.2); Carbon Dioxide 30 mmol/L (22-32); Chloride 102 mmol/L (98-107); Cholesterol 144 mg/dL (140-199); Estimated Glomerular Filt Rate > 60 mL/min (>60); Globulin 2.8 g/dL (1.7-4.1); Glucose 76 mg/dL (70-99); HDL Cholesterol 67 mg/dL (40-60); HEMOLYSIS < 15 (0-50); LDL Cholesterol Calculated 67 mg/dL (<100); Potassium 4.3 mmol/L (3.4-5.1); Sodium 138 mmol/L (137-145); Triglycerides 50 mg/dL (35-150)
[2024-10-28 16:51] LABS: TSH w/ Reflex to FT4 1.02 uIU/mL (0.47-4.68)
== END ==
PROVIDERS: PCP Internal Medicine; Referring Provider Internal Medicine; Visit Provider Internal Medicine
DX: I10 Essential (primary) hypertension (principal); E78.2 Mixed hyperlipidemia; I47.19 Other supraventricular tachycardia
CPT/HCPCS: 36415; 80053; 80061; 84153; 84443; 85027

== ENCOUNTER → 2024-12-25 13:14 | Outpatient (CLI) | payer MEDICARE, SELFPAY ==
--- NOTE | 2024-12-25 13:15 | DI.CT.S_ITS ---
PROCEDURE: CT CHEST WO CON INDICATIONS: nodule followup TECHNIQUE: Noncontrast 5 mm thick sections acquired from the pulmonary apices to the posterior costophrenic angles. 1 mm lung window, 5 mm thick coronal and sagittal and 7 mm axial MIP reformats were then acquired. For radiation dose reduction, the following was used: automated exposure control, adjustment of mA and/or kV according to patient size. COMPARISON: [facility], CT, CT CHEST WO [facility], 11/11/2023, 13:51. FINDINGS: Image quality: Diagnostic. Lower Neck: No enlarged lymph nodes. Thyroid: No thyroid nodules which require sonographic follow up, per consensus guidelines. Axillae: No enlarged lymph nodes. Chest Wall: Unremarkable. Bones: Unremarkable. Lungs and Pleura: No pneumothorax or pleural effusions. Stable appearance of the 6 mm nodule at the right apex. A 5 mm nodule in the right lower lobe anteriorly is also stable. 8 mm nodule in the lingula is also stable. No new focal lung parenchymal lesion seen. Heart: Heart size is normal. No pericardial effusion. Thoracic Vessels: The aorta and pulmonary arteries demonstrate normal size. Mediastinum and Leni: No enlarged lymph nodes. Esophagus: No wall thickening. No hiatal hernia. Upper Abdomen: Visualized upper abdomen solid organs and bowel loops appear normal. IMPRESSION: Stable bilateral subcentimeter lung nodules, most likely benign. No new focal lesion seen. Dictated by: Carloz Wiggins M.D. on 12/26/2024 at 20:20 Approved by: Carloz Wiggins M.D. on 12/26/2024 at 20:26
== END ==
PROVIDERS: PCP Internal Medicine; Referring Provider Internal Medicine; Visit Provider Internal Medicine
DX: R91.8 Other nonspecific abnormal finding of lung field (principal)
CPT/HCPCS: 71250